=== PATIENT | female | born 1955 | race Caucasian/White ===

== ENCOUNTER 2017-08-30 11:04 | Emergency (ER) | payer BC ==
[2017-08-30 11:48] VITALS: BP 179/94
--- NOTE | 2017-08-30 12:15 | UC ---
Skin Complaint HPI - HPI Summary HPI Summary: Patient presents with complaints of rash under her abdominal fold x several days. She reports history of yeast infections and over the holidays she states "it" kind of got away from her. She presents with itchy rash today in the abdominal fold. - History of Current Complaint Chief Complaint: UCRash Time Seen by Provider: 08/30/17 11:35 Stated Complaint: RASH Hx Obtained From: Patient ?: No Onset/Duration: Gradual Onset, Lasting Days Skin Exposure Onset/Duration: Days Ago Onset Severity: Mild Current Severity: Moderate Location: Discrete, Other - under the skin fold of abdomen Aggravating Factor(s): Touch Alleviating Factor(s): Other - showering Associated Signs & Symptoms: Positive: Rash - Allergy/Home Medications Allergies/Adverse Reactions: Allergies Allergy/AdvReac Type Severity Reaction Status Date / Time No Known Allergies Allergy Verified 08/30/17 11:41 Home Medications: Home Medications Azelaic Acid [Finacea] 15 % EX BID 08/30/17 [History Confirmed 08/30/17] Review of Systems Constitutional: Negative Skin: Other - rash under abdominal skin fold. Eyes: Negative ENT: Negative Respiratory: Negative Cardiovascular: Negative Gastrointestinal: Negative Genitourinary: Negative Motor: Negative Neurovascular: Negative Is Patient Immunocompromised?: No All Other Systems Reviewed And Are Negative: Yes PMH/Surg Hx/FS Hx/Imm Hx Previously Healthy: Yes - Surgical History Surgical History: Yes Surgery Procedure, Year, and Place: GALL BLADDER REMOVAL - Social History Occupation: Employed Full-time Lives: Alone Alcohol Use: None Substance Use Type: None Smoking Status (MU): Never Smoked Tobacco - Immunization History Most Recent Influenza Vaccination: never Physical Exam Triage Information Reviewed: Yes Appearance: Well-Appearing Vital Signs: Initial Vital Signs Temp 99.1 F 08/30/17 11:43 Pulse 79 08/30/17 11:43 Resp 16 08/30/17 11:43 BP 179/94 08/30/17 11:43 Pulse Ox 100 08/30/17 11:43 Vital Signs Reviewed: Yes Eye Exam: Normal ENT Exam: Normal Neck exam: Normal Neck: Positive: 1 Respiratory Exam: Normal Cardiovascular Exam: Normal Abdominal Exam: Normal Abdomen Description: Positive: Other: - erythmatous papular rash of the abdominal fold, mosist and inflammed in apperance. Musculoskeletal Exam: Normal Neurological Exam: Normal Psychological Exam: Normal Skin Exam: Normal Course/Dx - Course Course Of Treatment: Patient presents with yeast infection of the abdominal fold. She was treated with one dose of diflucan and given topical antifungal powder to apply tid and as needed. She was also told to leave open to air when possible. If for any reason the patient does not improve as anticipated she was told to follow up with PCP. - Differential Diagnoses - Skin Complaint Differential Diagnoses: Other - yeast infection - Diagnoses Provider Diagnoses: yeast infection Discharge - Discharge Plan Condition: Stable Disposition: HOME Prescriptions: Fluconazole 100 MG TAB* [Diflucan 100 MG TAB*] 100 mg PO DAILY #1 tab Nystatin TOP POWDER* 1 applic TOPICAL TID #1 btl Patient Education Materials: Skin Yeast Infection (ED) Referrals: Bety Dsouza MD [Primary Care Provider] -
== END 2017-08-30 12:09 | disposition home or self-care (01) ==
LOC: UCEAST 11:04
DX: B37.2 Candidiasis of skin and nail (principal)
CPT/HCPCS: 99212; G0463